=== PATIENT | male | born 1970 | race Caucasian/White ===

== ENCOUNTER → 2016-10-07 | Outpatient (CLI) | payer OTHER ==
--- NOTE | 2016-10-07 16:34 | DX ---
Chest, PA and Lateral Upright Views - October 07, 2016, at 2:44 p.m. Clinical History: 45-year-old male with an upper respiratory tract infection followed by trauma to th e upper right ribs. ICD-10 Diagnostic Codes: J06.9, R07.1, R06.02, and R07.81. Comparison Study: None. Findings: The cardiac and mediastinal silhouette are normal size. There is mild central perihilar bro nchial wall thickening, consistent with bronchitis. There is some diskoid subsegmental atelectasis in the anteromedial right middle lobe. There is no focal alveolar consolidation. There is no pleural ef fusion, peripheral interstitial edema, or pneumothorax. There is no rib fracture observed. Trace thor acic dextrocurvature is noted. The vertebral body heights are maintained. Impression: 1. Perihilar bronchitis with diskoid subsegmental atelectasis in the anteromedial right middle lobe. 2. There is no rib fracture or pneumothorax observed.
== END ==
LOC: CIMAGING 14:37
PROVIDERS: ATTEND Family Medicine
DX: J40 Bronchitis, not specified as acute or chronic (principal); J98.11 Atelectasis
CPT/HCPCS: 71020-PO

== ENCOUNTER 2017-06-26 10:03 | Emergency (ER) | payer OTHER ==
--- NOTE | 2017-06-26 10:43 | EDPHY ---
H & P Stated Complaint: states he is going through detox- drinking 3wks-last drink 1 hr ago Time Seen by Provider: 06/26/17 10:20 HPI/ROS: 46-year-old male with known history of alcohol abuse presents after being on a 3 week binge requesting help with detox. He refuses to go to the [facility]. His is here with him states he has had success in the past with a Librium taper. He states over the last 4 days he has had intermittent vomiting as well. Review of systems General no fever no chills no weakness HEENT no eye pain no eye discharge. No eye redness, no sore throat Respiratory no cough, no shortness of breath Cardiac no chest pain, no peripheral edema GI no abdominal pain, no diarrhea, no constipation, no nausea, positive vomiting no flank pain, no hematuria, no dysuria Musculoskeletal no myalgias, no joint pain Heme no easy bruising, no easy bleeding Endo no polyuria, no polydipsia Skin no rashes, no pruritus Neuro no syncope, no dizziness, no headaches Psych is no suicidal ideation, no homicidal ideation, positive history of alcohol abuse Source: Patient, Family Exam Limitations: Intoxication - Personal History Current Tetanus Diphtheria and Acellular Pertussis (TDAP): Yes - Medical/Surgical History Hx Asthma: No Hx Chronic Respiratory Disease: No Hx Diabetes: No Hx Cardiac Disease: No Hx Renal Disease: No Hx Cirrhosis: No Hx Alcoholism: Yes Hx HIV/AIDS: No Hx Splenectomy or Spleen Trauma: No - Family History Significant Family History: No pertinent family hx - Social History Smoking Status: Current every day smoker Alcohol Use: Heavy Drug Use: Marijuana - Physical Exam Exam: 46-year-old male intoxicated No evidence of trauma Alert, no acute distress nontoxic appearance, afebrile HEENT atraumatic normocephalic, extraocular muscles intact, anicteric Oropharynx negative for erythema negative exudate, tolerating her own secretions Neck supple no meningismus Lungs clear to auscultation bilaterally Heart regular rate and rhythm without murmur rub or gallop Abdomen nondistended normoactive bowel sounds soft nontender Back no CVA tenderness, no step-offs, no spinal tenderness Extremities no cyanosis clubbing or edema Neuro alert and oriented, no focal deficits Constitutional: Initial Vital Signs Temperature (C) 36.6 C 06/26/17 10:08 Heart Rate 20 L 06/26/17 10:08 Respiratory Rate 18 06/26/17 10:08 Blood Pressure 137/100 H 06/26/17 10:08 O2 Sat (%) 93 06/26/17 10:08 O2 Delivery Mode Room Air Allergies/Adverse Reactions: No Known Allergies Allergy (Unverified 05/27/12 05:48) Home Medications: Medication Instructions Recorded LORazepam [Ativan 1 mg (RX)] 1 - 2 mg PO .Q 6 HRS PRN #12 tab 05/27/12 chlordiazePOXIDE [Librium 25 mg 25 mg PO ONCE #15 cap 06/26/17 (*)] Medical Decision Making ED Course/Re-evaluation: Patient seen and evaluated for alcoholic intoxication, with some vomiting. IV started patient given 1 L normal saline, ondansetron 4 mg IV push Labs done CBC, CMP, lipase within normal limits Except potassium slightly low at 3.1 Breathalyzer 351 Patient observed until clinically sober and was discharged to the care of his , with prescription for Librium taper Impression Acute alcohol intoxication Plan Librium taper Follow-up PCP Differential Diagnosis: Alcohol intoxication - Data Points Laboratory Results: Laboratory Results 06/26/17 10:49 06/26/17 10:49 06/26/17 06/26/17 10:49 10:49 WBC 10.61 10^3/uL H 10^3/uL (3.80-9.50) RBC 4.85 10^6/uL 10^6/uL (4.40-6.38) Hgb 16.0 g/dL g/dL (13.7-17.5) Hct 43.5 % % (40.0-51.0) MCV 89.7 fL fL (81.5-99.8) MCH 33.0 pg pg (27.9-34.1) MCHC 36.8 g/dL H g/dL (32.4-36.7) RDW 12.5 % % (11.5-15.2) Plt Count 225 10^3/uL 10^3/uL (150-400) MPV 8.9 fL fL (8.7-11.7) Neut % (Auto) 68.7 % % (39.3-74.2) Lymph % (Auto) 19.9 % % (15.0-45.0) Falls % (Auto) 9.7 % % (4.5-13.0) Eos % (Auto) 0.8 % % (0.6-7.6) Baso % (Auto) 0.4 % % (0.3-1.7) Nucleat RBC Rel Count 0.0 % % (0.0-0.2) Absolute Neuts (auto) 7.30 10^3/uL H 10^3/uL (1.70-6.50) Absolute Lymphs (auto) 2.11 10^3/uL 10^3/uL (1.00-3.00) Absolute Monos (auto) 1.03 10^3/uL H 10^3/uL (0.30-0.80) Absolute Eos (auto) 0.08 10^3/uL 10^3/uL (0.03-0.40) Absolute Basos (auto) 0.04 10^3/uL 10^3/uL (0.02-0.10) Absolute Nucleated RBC 0.00 10^3/uL 10^3/uL (0-0.01) Immature Gran % 0.5 % % (0.0-1.1) Immature Gran # 0.05 10^3/uL 10^3/uL (0.00-0.10) Sodium 140 mEq/L mEq/L (134-144) Potassium 3.1 mEq/L L mEq/L (3.5-5.2) Chloride 101 mEq/L mEq/L (97-110) Carbon Dioxide 19 mEq/l L mEq/l (22-31) Anion Gap 20 mEq/L H mEq/L (8-16) BUN 13 mg/dL mg/dL (7-23) Creatinine 0.8 mg/dL mg/dL (0.7-1.3) Estimated GFR > 60 Glucose 120 mg/dL H mg/dL (70-100) Calcium 8.4 mg/dL L mg/dL (8.5-10.4) Magnesium 2.0 mg/dL mg/dL (1.6-2.3) Total Bilirubin 1.2 mg/dL mg/dL (0.1-1.4) AST 59 IU/L IU/L (17-59) ALT 51 IU/L IU/L (21-72) Alkaline Phosphatase 79 IU/L IU/L (38-126) Total Protein 6.3 g/dL g/dL (6.3-8.2) Albumin 3.9 g/dL g/dL (3.5-5.0) Lipase 163 IU/L IU/L (23-300) Medications Given: Discontinued Medications Sodium Chloride (Ns) 1,000 mls @ 0 mls/hr IV ONCE ONE PRN Reason: Wide Open Stop: 06/26/17 10:45 Last Admin: 06/26/17 10:48 Dose: 1,000 mls Ondansetron HCl (Zofran) 4 mg IVP EDNOW ONE Stop: 06/26/17 10:45 Last Admin: 06/26/17 10:48 Dose: 4 mg Departure - Departure Disposition: Home, Routine, Self-Care Clinical Impression: Acute alcohol intoxication Condition: Good Instructions: Alcohol Intoxication (ED), Alcohol Withdrawal (ED) Referrals: Linnette Encinas DO [Primary Care Provider] - As per Instructions Prescriptions: chlordiazePOXIDE [Librium 25 mg (*)] 25 mg PO ONCE #15 cap
[2017-06-26] MEDS ORDERED: NS 1,000 ML IV ONE (10:44)
[2017-06-26] MEDS ORDERED: ONDANSETRON 4 MG/2 ML VIAL IVP ONE (10:44)
[2017-06-26 10:51] LABS: % IMMATURE GRANULYOCYTES 0.5 % (0.0-1.1); ABSOLUTE IMMATURE GRANULOCYTES 0.05 10^3/uL (0.00-0.10); ADD DIFF? NO; ADD MORPH? NO; ADD SCAN? NO; ATYPICAL LYMPHOCYTE FLAG 10 (0-99); FRAGMENT RBC FLAG 0 (0-99); HEMATOCRIT 43.5 % (40.0-51.0); LEFT SHIFT FLG 0 (0-99); LIPEMIA HEMOLYSIS FLAG 90 (0-99); MEAN CELL HEMOGLOBIN CONCENTR. 36.8 g/dL (32.4-36.7); MEAN CELL VOLUME 89.7 fL (81.5-99.8); MEAN PLATELET VOLUME 8.9 fL (8.7-11.7); PLATELET CLUMPS FLAG 20 (0-99); PLATELET COUNT 225 10^3/uL (150-400); RED BLOOD CELL COUNT 4.85 10^6/uL (4.40-6.38); RED CELL DISTRIBUTION WIDTH 12.5 % (11.5-15.2)
[2017-06-26 11:21] VITALS: RESP 18; TEMP 98
[2017-06-26 11:31] LABS: ALANINE AMINOTRANSFERASE 51 IU/L (21-72); ALBUMIN 3.9 g/dL (3.5-5.0); ALKALINE PHOSPHATASE 79 IU/L (38-126); ANION GAP 20 mEq/L (8-16); ASPARTATE AMINOTRANSFERASE 59 IU/L (17-59); BILIRUBIN,TOTAL 1.2 mg/dL (0.1-1.4); CALCIUM 8.4 mg/dL (8.5-10.4); CARBON DIOXIDE 19 mEq/l (22-31); CHLORIDE 101 mEq/L (97-110); CREATININE 0.8 mg/dL (0.7-1.3); GLOMERULAR FILTRATION RATE > 60; GLUCOSE 120 mg/dL (70-100); POTASSIUM 3.1 mEq/L (3.5-5.2); SODIUM 140 mEq/L (134-144); TOTAL PROTEIN 6.3 g/dL (6.3-8.2)
[2017-06-26 11:41] VITALS: BP 135/80; PULSE 101; O2SAT 96
== END 2017-06-26 11:38 | disposition home or self-care (01) ==
LOC: CED 10:03
DX: F10.129 Alcohol abuse with intoxication, unspecified (principal); F17.200 Nicotine dependence, unspecified, uncomplicated
CPT/HCPCS: 80053-PO; 83690-PO; 83735-PO; 85025-PO; 96374

== ENCOUNTER 2017-06-29 07:12 | Emergency (ER) | payer OTHER ==
[2017-06-29 07:18] VITALS: BP 118/87; PULSE 92; RESP 17; TEMP 97.9; O2SAT 95
--- NOTE | 2017-06-29 07:57 | EDPHY ---
H & P Time Seen by Provider: 06/29/17 07:33 HPI/ROS: CHIEF COMPLAINT: Intoxicated HISTORY OF PRESENT ILLNESS: Patient is a 46-year-old male who presents emergency department with ongoing alcohol use. He was brought in with his . Patient has had a longstanding history of alcohol abuse. Went to rehab 3 years ago. He has been drinking heavily since that time. Patient's states he started been drinking approximately 4 weeks ago. He was seen in the emergency department on . He was given fluids and discharged with Librium as a prescription. The states he has not been taking his Librium but started drinking again after discharge. She brings him in today intoxicated. Both the patient and his are requesting detox. He has no recent trauma or other complaints. No headache. No neck pain. No chest pain or shortness of breath. No abdominal pain. No nausea vomiting. REVIEW OF SYSTEMS: My complete review of systems is negative except as mentioned in the HPI. Past Medical/Surgical History: Alcohol abuse Past surgical history: Denies Social history: The patient drinks alcohol. He is . Smoking Status: Current every day smoker Physical Exam: 36.6, 118/87, 92, 17, 95% on room air GENERAL: No acute distress, alert. HEENT: Mild injected conjunctiva. PERRLA. Normal pharynx, no signs of dehydration. NECK: No thyromegaly, no lymphadenopathy, supple. RESPIRATORY: Clear to auscultation bilaterally, no rales, rhonchi or wheezing. CVS: Regular rate and rhythm, no rubs, murmurs, or gallops. ABDOMEN: Soft, nontender, nondistended, no organomegaly. BACK: Normal to inspection, no CVA tenderness. SKIN: Normal color, no rash, warm, dry. No pallor. EXTREMITIES: No pedal edema, no calf tenderness, no Homans sign or cords, no joint swelling. NEURO/PSYCH: Alert and oriented x2. Intoxicated appearing. Mildly slurred speech. Answers questions appropriately. Normal motor sensory exam. No obvious cranial nerve deficit. Constitutional: Initial Vital Signs Temperature (C) 36.6 C 06/29/17 07:16 Heart Rate 92 06/29/17 07:16 Respiratory Rate 17 06/29/17 07:16 Blood Pressure 118/87 H 06/29/17 07:16 O2 Sat (%) 95 06/29/17 07:16 O2 Delivery Mode Room Air Allergies/Adverse Reactions: No Known Allergies Allergy (Verified 06/29/17 07:15) Home Medications: Medication Instructions Recorded LORazepam [Ativan 1 mg (RX)] 1 - 2 mg PO .Q 6 HRS PRN #12 tab 05/27/12 chlordiazePOXIDE [Librium 25 mg 25 mg PO ONCE #15 cap 06/26/17 (*)] Pravastatin Sodium 06/29/17 Medical Decision Making ED Course/Re-evaluation: In the emergency department I discussed possible etiologies with the patient and his . I answered all her questions. I offered them detox. Patient would like to be transferred to the [facility]. This will be arranged. Patient's vital signs are noted. I do not feel he needs IV fluid at this time. I do not feel he is in acute alcohol withdrawal as he still appears intoxicated. I was going to arrange transfer by cab. The would prefer to take the patient. They agree with this plan. Differential Diagnosis: My differential includes but is not limited to alcohol intoxication, alcohol withdrawal, closed-head injury, CVA, electrolyte abnormality, sugar abnormality Departure - Departure Disposition: Home, Routine, Self-Care Clinical Impression: Alcoholic intoxication Qualifiers: Complication of substance-induced condition: uncomplicated Qualified Code(s): F10.920 - Alcohol use, unspecified with intoxication, uncomplicated Condition: Good Instructions: Alcohol Intoxication (ED) Additional Instructions: You need to go to the [facility] for detox. You will be taken there by her . They have been contacted to arrange a evaluation. Referrals: Linnette Encinas DO [Primary Care Provider] - 3-4 days, if not improved
== END 2017-06-29 08:20 | disposition home or self-care (01) ==
LOC: EEVIPCON 07:12
DX: F10.920 Alcohol use, unspecified with intoxication, uncomplicated (principal); F17.200 Nicotine dependence, unspecified, uncomplicated